=== PATIENT | female | born 1990 | race Caucasian/White ===

== ENCOUNTER 2019-08-15 11:09 | Emergency (ER) | payer OTHER ==
[2019-08-15] MEDS ORDERED: Bacitracin Oint 1 GM U/D Packet TOP ONE ×2 (12:39→12:45)
[2019-08-15] MEDS ORDERED: Bacitracin Oint 1 GM U/D Packet ONE (12:44)
--- NOTE | 2019-08-15 13:08 | EDM.PDOC ---
Scribed by Karmen Carrera 08/15/19 1237 for Socorro Mcdaniel NP ED HPI GENERAL MEDICAL PROBLEM - General Chief Complaint: Skin Complaint Stated Complaint: TRACK INFECTION Time Seen by Provider: 08/15/19 12:02 Source of Information: Reports: Patient, RN, RN Notes Reviewed History Limitations: Reports: No Limitations - History of Present Illness INITIAL COMMENTS - FREE TEXT/NARRATIVE: Patient presents to ER with complaint of infection to tattoo to right forearm. Staets she got the tattoo on Friday. It was wrapped with Durawrap for 48 hours as instructed by tattoo parlor. She has been applying Aquaphor. She admits to blood disorder. (She states 1 step down below [employer] [place]). Admits to chills. Denies fever. States it feels hot at the tattoo site. Onset: Gradual Duration: Getting Worse Location: Reports: Upper Extremity, Right Quality: Reports: Ache Severity: Moderate Improves with: Reports: None Worsens with: Reports: None Associated Symptoms: Reports: No Other Symptoms - Related Data Allergies Allergy/AdvReac Type Severity Reaction Status Date / Time ibuprofen Allergy Other Verified 08/15/19 11:58 Home Meds: Home Meds Multivitamin-Min/Iron/FA/Vit K [Multi-Day Plus Minerals Tablet] 1 tab PO DAILY 08/15/19 [History] ED ROS GENERAL - Review of Systems Review Of Systems: Comprehensive ROS is negative, except as noted in HPI. ED EXAM, SKIN/RASH Exam: See Below Exam Limited By: No Limitations General Appearance: Alert, WD/WN, No Apparent Distress Eye Exam: Bilateral Eye: EOMI, Normal Inspection, PERRL Ears: Normal External Exam, Normal Canal, Hearing Grossly Normal, Normal TMs Nose: Normal Inspection, Normal Mucosa, No Blood Throat/Mouth: Normal Inspection, Normal Lips, Normal Teeth, Normal Gums, Normal Oropharynx, Normal Voice, No Airway Compromise Head: Atraumatic, Normocephalic Neck: Normal Inspection, Supple, Non-Tender, Full Range of Motion Respiratory/Chest: No Respiratory Distress, Lungs Clear, Normal Breath Sounds, No Accessory Muscle Use, Chest Non-Tender Cardiovascular: Normal Peripheral Pulses, Regular Rate, Rhythm, No Edema, No Gallop, No JVD, No Murmur, No Rub GI/Abdominal: Normal Bowel Sounds, Soft, Non-Tender, No Organomegaly, No Distention, No Abnormal Bruit, No Mass (Female) Exam: Deferred Rectal (Female) Exam: Deferred Back Exam: Normal Inspection, Full Range of Motion, NT Extremities: Normal Inspection, Normal Range of Motion, Non-Tender, No Pedal Edema, Normal Capillary Refill Neurological: Alert, Oriented, CN II-XII Intact, Normal Cognition, Normal Gait, Normal Reflexes, No Motor/Sensory Deficits Psychiatric: Flat Affect Skin: Other (right forearm erythema and swelling, tenderness and drainage.) Lymphatic: No Adenopathy Course - Vital Signs Last Recorded V/S: Last Vital Signs Temp 98.5 F 08/15/19 11:50 Pulse 79 08/15/19 11:50 Resp 18 08/15/19 11:50 BP 135/90 08/15/19 11:50 Pulse Ox 100 08/15/19 11:50 - Orders/Labs/Meds Orders: Active Orders 24 hr Category Date Time Status LACTIC ACID [CHEM] Stat Lab 08/15/19 12:20 Received Labs: Laboratory Tests 08/15/19 Range/Units 12:20 WBC 8.0 (5.0-10.0) 10^3/uL RBC 4.70 (4.2-5.4) 10^6/uL Hgb 13.5 (12.0-16.0) g/dL Hct 41.1 (37.0-47.0) % MCV 87.4 (80-100) fL MCH 28.7 (27.0-34.0) pg MCHC 32.8 L (33.0-35.0) g/dL Plt Count 250 (150-450) 10^3/uL Neut % (Auto) 75.4 H (42.2-75.2) % Lymph % (Auto) 15.3 L (20.5-50.1) % Cache % (Auto) 7.6 (2-8) % Eos % (Auto) 1.4 (1.0-3.0) % Baso % (Auto) 0.3 (0.0-1.0) % Departure - Departure Time of Disposition: 12:35 Disposition: Home, Self-Care 01 Condition: Fair Clinical Impression: Cellulitis Qualifiers: Site of cellulitis: extremity Site of cellulitis of extremity: upper extremity Laterality: right Qualified Code(s): L03.113 - Cellulitis of right upper limb - Discharge Information *PRESCRIPTION DRUG MONITORING PROGRAM REVIEWED*: No *COPY OF PRESCRIPTION DRUG MONITORING REPORT IN PATIENT HERBERT: No Instructions: Cellulitis, Adult, [id number] Forms: ED Department Discharge Additional Instructions: RX: Cephalexin Follow up with your primary care facility May use Tylenol as directed for pain/fever Continue to use Aquaphor to the area and wash frequently with antibacterial soap Sepsis Event Note - Evaluation Sepsis Screening Result: No Definite Risk - Focused Exam Vital Signs: Vital Signs Temp Pulse Resp BP Pulse Ox 08/15/19 11:50 98.5 F 79 18 135/90 100 Date Exam was Performed: 08/15/19 Time Exam was Performed: 12:35 - My Orders Last 24 Hours: My Active Orders 08/15/19 12:20 LACTIC ACID [CHEM] Stat - Assessment/Plan Last 24 Hours: My Active Orders 08/15/19 12:20 LACTIC ACID [CHEM] Stat I have read and agree with the documentation that has been completed regarding this visit. By signing this record, I attest that the documentation was completed in my physical presence and is an accurate record of the encounter.
== END 2019-08-15 12:50 | disposition home or self-care (01) ==
LOC: DL.ED 11:09
DX: L03.113 Cellulitis of right upper limb (principal); Z88.6 Allergy status to analgesic agent
CPT/HCPCS: 36415; 83605; 85025; 99283

== ENCOUNTER 2024-02-02 13:47 | Emergency (ER) | payer BC, OTHER ==
[2024-02-02] MEDS ORDERED: Sodium Chloride 0.9% 10 ML Syringe FLUSH PRN (14:34)
[2024-02-02 14:53] LABS: BASOPHILS PERCENT AUTO 0.2 % (0.0-1.0); EOSINOPHILS PERCENT AUTO 1.4 % (1.0-3.0); HEMATOCRIT 33.1 % (37.0-47.0); HEMOGLOBIN 10.3 g/dL (12.0-16.0); LYMPHOCYTES PERCENT AUTO 23.3 % (20.5-50.1); MEAN CORPUSCULAR HEMOGLOBIN 23.3 pg (27.0-34.0); MEAN CORPUSCULAR HGB CONC 31.1 g/dL (33.0-35.0); MEAN CORPUSCULAR VOLUME 74.9 fL (80-100); MONOCYTES PERCENT AUTO 11.4 % (2-8); NEUTROPHILS PERCENT AUTO 63.7 % (42.2-75.2); PLATELET COUNT,PLT 306 10^3/uL (150-450); RED BLOOD CELL COUNT 4.42 10^6/uL (4.2-5.4); WHITE BLOOD CELL COUNT,WBC 8.4 10^3/uL (5.0-10.0)
[2024-02-02 15:12] LABS: INR 0.9 (0.9-1.2); PROTHROMBIN TIME 9.6 SEC (9.0-12.0)
[2024-02-02 15:14] LABS: APPEARANCE,URINE CLOUDY (CLEAR); BILIRUBIN,URINE NEGATIVE (NEGATIVE); COLOR,URINE DARK YELLOW (YELLOW); GLUCOSE,URINE NEGATIVE (NEGATIVE); KETONES,URINE NEGATIVE (NEGATIVE); LEUKOCYTE ESTERASE,URINE NEGATIVE (NEGATIVE); NITRITE,URINE NEGATIVE (NEGATIVE); OCCULT BLOOD,URINE LARGE (NEGATIVE); PH,URINE 5.5 (5.0-9.0); PROTEIN,URINE 30 (NEGATIVE); UROBILINOGEN,URINE 0.2 mg/dL (0.2-1.0)
[2024-02-02 15:32] LABS: WBC,URINE 0-5 /HPF (0-5/HPF)
[2024-02-02 15:33] LABS: AMORPHOUS SEDIMENT,URINE FEW /HPF (NOT SEEN); BACTERIA,URINE MANY /HPF (0-FEW/HPF); EPITHELIAL CELLS,URINE FEW /HPF (NOT SEEN); MUCUS,URINE FEW /LPF (NOT SEEN); RBC,URINE SEMI-PACKED /HPF (0-5); YEAST,URINE FEW /HPF (NOT SEEN)
== END 2024-02-02 17:28 | disposition home or self-care (01) ==
LOC: DL.ED 13:47
DX: O03.9 Complete or unspecified spontaneous abortion without complication (principal); Z04.9 Encounter for examination and observation for unspecified reason; Z88.8 Allergy status to other drugs, medicaments and biological substances
CPT/HCPCS: 36415; 76801; 81001; 84702; 84703; 85025; 85610; 85730; 86850; 86900; 86901; 99284